=== PATIENT | male | born 1970 ===

== ENCOUNTER 2016-10-12 22:33 | Emergency (ER) | payer SELFPAY ==
[2016-10-12 22:54] VITALS: BP 128/81; PULSE 86; RESP 20; TEMP 98.2; O2SAT 98
--- NOTE | 2016-10-12 23:45 | C.PDOC ---
History Of Present Illness Patient is a 46 year old male who presents to the ER with a complaint of a left ear ache and cough for the past 3-4 days. Patient denies fever, chills or throat pain. Time Seen by Provider: 10/12/16 23:32 Chief Complaint (Nursing): ENT Problem History Per: Patient History/Exam Limitations: no limitations Onset/Duration Of Symptoms: Hrs Current Symptoms Are (Timing): Still Present Location Of Pain: Ear(s) (Left) Sick Contacts (Context): None Associated Symptoms: Cough. denies: Fever, Chills, Sore Throat Ear Symptoms: Left: Ear Pain, Right: None Recent travel outside of the [place]: No Past Medical History Reviewed: Historical Data, Nursing Documentation, Vital Signs Vital Signs: Last Vital Signs Temp 98.2 F 10/12/16 22:54 Pulse 86 10/12/16 22:54 Resp 20 10/12/16 22:54 BP 128/81 10/12/16 22:54 Pulse Ox 98 10/13/16 01:12 - Medical History PMH: HTN Surgical History: No Surg Hx Family History: States: Unknown Family Hx - Social History Hx Alcohol Use: Yes Hx Substance Use: No - Immunization History Hx Tetanus Toxoid Vaccination: No Hx Influenza Vaccination: No Hx Pneumococcal Vaccination: No Review Of Systems Constitutional: Negative for: Fever, Chills ENT: Positive for: Ear Pain (Left). Negative for: Throat Pain Respiratory: Positive for: Cough Physical Exam - Physical Exam Appears: Non-toxic Skin: Normal Color, Warm, Dry Head: Atraumatic, Normacephalic Eye(s): bilateral: Normal Inspection, PERRL Ear(s): Left: Other (erythema of left ear canal with purulent exudates and yellowish discharge, (+) tragal tenderness) Nose: Normal, Flaring (t), No Discharge Oral Mucosa: Moist Tongue: Normal Appearing, No Erythema Lips: Normal Appearing, No Erythema Gingiva: Normal Appearing, No Erythema Throat: Normal, No Erythema, No Exudate Neck: Normal, Supple Lymphatic: No Adenopathy Chest: Symmetrical, No Tenderness Cardiovascular: Rhythm Regular, No Murmur Respiratory: Decreased Breath Sounds, No Wheezing Neurological/Psych: Oriented x3, Normal Speech, Normal Cognition ED Course And Treatment O2 Sat by Pulse Oximetry: 98 (Room air) Pulse Ox Interpretation: Normal Progress Note: Motrin administered. Disposition Counseled Patient/Family Regarding: Diagnosis, Need For Followup, Rx Given - Disposition Referrals: [facility] [Outside] [facility] [Outside] Arben Pineda MD [Staff Provider] - Disposition: HOME/ ROUTINE Disposition Time: 23:43 Condition: STABLE Additional Instructions: Please follow up with PMD Increase PO fluids Take medications as directed Retun to ER if worse Prescriptions: Hydrocortisone 1% Cream [Cortizone 1% Cream] 1 appl TP BID #1 tube Ibuprofen [Motrin] 600 mg PO Q6H #30 tab Neomycin/Polymyxin/Hydrocortis [Cortisporin Otic Susp] 3 - 5 drop TID #1 bottle Instructions: Otitis Externa (ED) Print Language: BHUTANESE - Clinical Impression Clinical Impression: Otitis externa of left ear, Dermatitis - Scribe Statement The provider has reviewed the documentation as recorded by the Scribe Leroy Fu All medical record entries made by the Scribe were at my direction and personally dictated by me. I have reviewed the chart and agree that the record accurately reflects my personal performance of the history, physical exam, medical decision making, and the department course for this patient. I have also personally directed, reviewed, and agree with the discharge instructions and disposition.
== END 2016-10-13 00:26 | disposition home or self-care (01) ==
LOC: C.ER 22:33
DX: H60.92 Unspecified otitis externa, left ear (principal); L30.9 Dermatitis, unspecified; I10 Essential (primary) hypertension